=== PATIENT | male | born 1965 | race Caucasian/White ===

== ENCOUNTER 2016-11-17 16:03 | Inpatient (IN) | payer BC ==
[2016-11-17 17:04] VITALS: BMI 22.4
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
[2016-11-17] MEDS ORDERED: MAGNESIUM HYDROX 2400MG/30ML ORAL SUSPENSION 30 ML CUP PO PRN (17:32)
[2016-11-17] MEDS ORDERED: ACETAMINOPHEN 325 MG TABLET (FP) PO PRN (17:32)
[2016-11-17] MEDS ORDERED: MAG HYDROX/AL HYDROX/SIMETH 30 ML UNIT-DOSE CUP PO PRN (17:32)
[2016-11-17] MEDS ORDERED: diphenhydrAMINE HCL 50 MG CAPSULE PO PRN (17:32)
[2016-11-17] MEDS ORDERED: P-EPHED 60MG/TRIPROLIDI 2.5MG TABLET PO PRN (17:32)
[2016-11-17] MEDS ORDERED: MENTHOL/PHENOL 1 EACH UD MM PRN (17:32)
[2016-11-17] MEDS ORDERED: guaiFENesin/D-METHORPHAN HB 10 ML UNIT-DOSE CUPS PO PRN (17:32)
[2016-11-17] MEDS ORDERED: LOPERAMIDE HCL 2 MG CAPSULE PO PRN (17:32)
[2016-11-17] MEDS ORDERED: NICOTINE POLACRILEX 4 MG GUM BC PRN (17:32)
[2016-11-17] MEDS ORDERED: MAGNESIUM CITRATE 300 ML BOTTLE PO PRN (17:32)
[2016-11-17] MEDS ORDERED: ALBUTEROL SO4 2.5/IPRATROPIUM 0.5 INH SOL 3 ML VIAL.NEB. NEB PRN (17:34)
[2016-11-17] MEDS ORDERED: ALBUTEROL SO4 6.7 GM HFA INHALER IH PRN (17:34)
[2016-11-17] MEDS ORDERED: OXYMETAZOLINE 0.05% NASAL SOLUTION 15 ML BOTTLE NS PRN (17:36)
[2016-11-17] MEDS ORDERED: cloNIDine HCL 0.1 MG TABLET PO PRN (17:37)
[2016-11-17] MEDS ORDERED: METHADONE HCL 10 MG TABLET (FOR DETOX USE ONLY) PO ONE ×2 (18:45→23:00)
[2016-11-17] MEDS: amLODIPine BESYLATE 10 MG TABLET (FP) PO SCH (19:57)
[2016-11-17] MEDS: diazePAM 5 MG TABLET PO PRN (19:59)
[2016-11-17] MEDS: DOXYCYCLINE HYCLATE 100 MG TABLET PO SCH (20:06)
[2016-11-17] MEDS: THIAMINE HCL 100 MG TABLET (FP) PO SCH (22:24)
[2016-11-17] MEDS: BUDESONIDE/FORMETEROL FUMARATE 80/4.5 mcg INHALER IH SCH (22:24)
[2016-11-17 22:54] LABS: URINE APPEARANCE CLEAR; URINE BILIRUBIN NEGATIVE (NEGATIVE); URINE BLOOD NEGATIVE (NEGATIVE); URINE COLOR YELLOW; URINE GLUCOSE (UA) NEGATIVE (NEGATIVE); URINE KETONE NEGATIVE (NEGATIVE); URINE LEUK ESTERASE NEGATIVE (NEGATIVE); URINE NITRITE NEGATIVE (NEGATIVE); URINE PROTEIN NEGATIVE (NEGATIVE); URINE UROBILINOGEN 2.0 E.U/dl E.U./dl (0.2-1.0)
[2016-11-18] MEDS: diazePAM 5 MG TABLET PO PRN ×2 (05:46→20:20)
[2016-11-18] MEDS ORDERED: AMOX TR/POT CLAV 875MG/125MG TABLETS (FP) PO SCH (08:00)
[2016-11-18 09:55] LABS: MCH 30.4 pg (25.7-33.7); MCHC 33.2 g/dl (32.0-35.9); MEAN CELL VOLUME 91.5 fl (80-96); MEAN PLT VOLUME 8.1 fl (7.5-11.1); PLATELET COUNT 223 K/MM3 (134-434); RDW 14.1 % (11.9-15.9); WHITE BLOOD COUNT 11.6 K/mm3 (4.0-10.0)
[2016-11-18] MEDS: PRENATAL VITAMINS W/ FOLIC ACID TABLET (FP) PO SCH (09:58)
[2016-11-18] MEDS: amLODIPine BESYLATE 10 MG TABLET (FP) PO SCH (09:58)
[2016-11-18] MEDS: NICOTINE 21 MG/24 HOURS TOPICAL PATCH TD SCH (09:59)
[2016-11-18] MEDS: DOXYCYCLINE HYCLATE 100 MG TABLET PO SCH ×2 (10:00→17:03)
[2016-11-18] MEDS ORDERED: METHADONE HCL 10 MG TABLET (FOR DETOX USE ONLY) PO ONE (10:00)
[2016-11-18] MEDS: BUDESONIDE/FORMETEROL FUMARATE 80/4.5 mcg INHALER IH SCH ×2 (10:00→22:25)
[2016-11-18 10:09] LABS: ALBUMIN 3.9 g/dl (3.4-5.0); ALK PHOS 78 U/L (45-117); ANION GAP 9 (8-16); BILIRUBIN,TOTAL 0.4 mg/dL (0.2-1.0); CALCIUM 9.1 mg/dL (8.5-10.1); CO2 27 mmol/L (21-32); CREATININE 0.8 mg/dL (0.7-1.3); GLUCOSE,RANDOM 127 mg/dL (74-106); SGOT/AST 13 U/L (15-37); SGPT/ALT 22 U/L (12-78); TOT PROT 7.1 g/dl (6.4-8.2)
--- NOTE | 2016-11-18 10:27 | PN ---
BHS COWS - Scale Resting Pulse: 1= [place] 81-100 Sweatin= Chills/Flushing Restless Observation: 3= Extraneous Movement Pupil Size: 2= Moderately Dilated Bone or Joint Aches: 4=Acute Joint/Muscle Pain Runny Nose/ Eye Tearin= Nasal Congestion GI Upset > 30mins: 1= Stomach Cramp Tremor Observation of Outstretched Hands: 1= Tremor [place], Not Seen Yawning Observation: 0= None Anxiety or Irritability: 2=Irritable/Anxious Goose Flesh Skin: 0=Smooth Skin COWS Score: 16 BHS Progress Note (SOAP) Subjective: ANXIETY,SWEATS,IRRITABILITY. Objective: 11/18/16 10:26 Vital Signs Temperature 97.9 F 11/18/16 09:52 Pulse Rate 100 H 11/18/16 09:52 Respiratory Rate 20 11/18/16 09:52 Blood Pressure 127/88 11/18/16 09:52 O2 Sat by Pulse Oximetry (%) Laboratory Last Values WBC 11.6 K/mm3 (4.0-10.0) H 11/18/16 06:30 RBC 5.33 M/mm3 (4.00-5.60) 11/18/16 06:30 Hgb 16.2 GM/dL (11.7-16.9) 11/18/16 06:30 Hct 48.8 % (35.4-49) 11/18/16 06:30 MCV 91.5 fl (80-96) 11/18/16 06:30 MCHC 33.2 g/dl (32.0-35.9) 11/18/16 06:30 RDW 14.1 % (11.9-15.9) 11/18/16 06:30 Plt Count 223 K/MM3 (134-434) 11/18/16 06:30 MPV 8.1 fl (7.5-11.1) 11/18/16 06:30 Sodium 141 mmol/L (136-145) 11/18/16 07:00 Potassium 4.0 mmol/L (3.5-5.1) 11/18/16 07:00 Chloride 105 mmol/L (98-107) 11/18/16 07:00 Carbon Dioxide 27 mmol/L (21-32) 11/18/16 07:00 Anion Gap 9 (8-16) 11/18/16 07:00 BUN 11 mg/dL (7-18) 11/18/16 07:00 Creatinine 0.8 mg/dL (0.7-1.3) 11/18/16 07:00 Creat Clearance w eGFR > 60 (>60) 11/18/16 07:00 Random Glucose 127 mg/dL (74-106) H 11/18/16 07:00 Calcium 9.1 mg/dL (8.5-10.1) 11/18/16 07:00 Total Bilirubin 0.4 mg/dL (0.2-1.0) 11/18/16 07:00 AST 13 U/L (15-37) L 11/18/16 07:00 ALT 22 U/L (12-78) 11/18/16 07:00 Alkaline Phosphatase 78 U/L (45-117) 11/18/16 07:00 Total Protein 7.1 g/dl (6.4-8.2) 11/18/16 07:00 Albumin 3.9 g/dl (3.4-5.0) 11/18/16 07:00 Urine Color Yellow 11/17/16 22:48 Urine Appearance Clear 11/17/16 22:48 Urine pH 7.0 (5.0-8.0) 11/17/16 22:48 Ur Specific [place] 1.024 (1.001-1.035) 11/17/16 22:48 Urine Protein Negative (NEGATIVE) 11/17/16 22:48 Urine Glucose (UA) Negative (NEGATIVE) 11/17/16 22:48 Urine Ketones Negative (NEGATIVE) 11/17/16 22:48 Urine Blood Negative (NEGATIVE) 11/17/16 22:48 Urine Nitrite Negative (NEGATIVE) 11/17/16 22:48 Urine Bilirubin Negative (NEGATIVE) 11/17/16 22:48 Urine Urobilinogen 2.0 e.u/dl E.U./dl (0.2-1.0) 11/17/16 22:48 Ur Leukocyte Esterase Negative (NEGATIVE) 11/17/16 22:48 Assessment: 11/18/16 10:27 WITHDRAWAL SX Plan: CONTINUE DETOX
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
--- NOTE | 2016-11-18 12:52 | EKG ---
Test Reason : Blood Pressure : / mmHG Vent. Rate : 097 BPM Atrial Rate : 097 BPM P-R Int : 114 ms QRS Dur : 112 ms QT Int : 382 ms P-R-T Axes : 071 082 066 degrees QTc Int : 485 ms NORMAL SINUS RHYTHM RIGHT BUNDLE BRANCH BLOCK ABNORMAL ECG NO PREVIOUS ECGS AVAILABLE Confirmed by CHIVO CEJA MD ([id number]) on 11/18/2016 12:51:53 PM Referred By: Confirmed By:CHIVO CEJA MD
--- NOTE | 2016-11-18 12:54 | EKG ---
Test Reason : Blood Pressure : / mmHG Vent. Rate : 085 BPM Atrial Rate : 085 BPM P-R Int : 124 ms QRS Dur : 118 ms QT Int : 412 ms P-R-T Axes : 079 085 072 degrees QTc Int : 490 ms NORMAL SINUS RHYTHM RIGHT BUNDLE BRANCH BLOCK ABNORMAL ECG WHEN COMPARED WITH ECG OF 17-NOV-2016 20:05, NO SIGNIFICANT CHANGE WAS FOUND Confirmed by CHIVO CEJA MD ([id number]) on 11/18/2016 12:53:54 PM Referred By: Confirmed By:CHIVO CEJA MD
[2016-11-18] MEDS: CIPROFLOXACIN 0.3% EYE DROPS 5 ML BOTTLE OD SCH ×2 (15:47→22:28)
[2016-11-18] MEDS: IBUPROFEN 400 MG TABLET (FP) PO PRN (20:19)
[2016-11-18] MEDS: THIAMINE HCL 100 MG TABLET (FP) PO SCH (22:25)
[2016-11-19] MEDS: IBUPROFEN 400 MG TABLET (FP) PO PRN (05:48)
[2016-11-19] MEDS: diazePAM 5 MG TABLET PO PRN ×3 (05:48→17:43)
[2016-11-19] MEDS: CIPROFLOXACIN 0.3% EYE DROPS 5 ML BOTTLE OD SCH ×2 (05:50→14:26)
[2016-11-19] MEDS ORDERED: METHADONE HCL 10 MG TABLET (FOR DETOX USE ONLY) PO ONE (09:12)
[2016-11-19] MEDS ORDERED: cloNIDine HCL 0.1 MG TABLET PO SCH ×2 (09:30→10:00)
[2016-11-19] MEDS ORDERED: METHADONE HCL 5 MG TABLET (FOR DETOX USE ONLY) PO ONE (10:00)
[2016-11-19] MEDS: NICOTINE 21 MG/24 HOURS TOPICAL PATCH TD SCH (10:23)
[2016-11-19] MEDS: DOXYCYCLINE HYCLATE 100 MG TABLET PO SCH ×2 (10:23→17:41)
[2016-11-19] MEDS: PRENATAL VITAMINS W/ FOLIC ACID TABLET (FP) PO SCH (10:23)
[2016-11-19] MEDS: BUDESONIDE/FORMETEROL FUMARATE 80/4.5 mcg INHALER IH SCH (10:24)
--- NOTE | 2016-11-19 10:37 | PN ---
BHS COWS - Scale Resting Pulse: 1= [place] 81-100 Sweatin= Chills/Flushing Restless Observation: 0= Sits Still Pupil Size: 0= Normal to Room Light Bone or Joint Aches: 4=Acute Joint/Muscle Pain Runny Nose/ Eye Tearin= Runny Nose/Eyes GI Upset > 30mins: 1= Stomach Cramp Tremor Observation of Outstretched Hands: 2= Slight Tremor Visible Yawning Observation: 1= 1-2x During Session Anxiety or Irritability: 2=Irritable/Anxious Goose Flesh Skin: 0=Smooth Skin COWS Score: 14 BHS Progress Note (SOAP) Subjective: ANXIETY,SWEATS. RIGHT EYE MUCH BETTER TODAY. NORMAL EYELID OPENING, SWELLING AND EYE DRAINAGE RESOLVING. VISION UNIMPAIRED. NO C/O PAIN. Objective: 11/19/16 10:36 Vital Signs Temperature 96.2 F L 11/19/16 09:45 Pulse Rate 92 H 11/19/16 09:45 Respiratory Rate 18 11/19/16 09:45 Blood Pressure 140/95 11/19/16 09:45 O2 Sat by Pulse Oximetry (%) Laboratory Last Values WBC 11.6 K/mm3 (4.0-10.0) H 11/18/16 06:30 RBC 5.33 M/mm3 (4.00-5.60) 11/18/16 06:30 Hgb 16.2 GM/dL (11.7-16.9) 11/18/16 06:30 Hct 48.8 % (35.4-49) 11/18/16 06:30 MCV 91.5 fl (80-96) 11/18/16 06:30 MCHC 33.2 g/dl (32.0-35.9) 11/18/16 06:30 RDW 14.1 % (11.9-15.9) 11/18/16 06:30 Plt Count 223 K/MM3 (134-434) 11/18/16 06:30 MPV 8.1 fl (7.5-11.1) 11/18/16 06:30 Sodium 141 mmol/L (136-145) 11/18/16 07:00 Potassium 4.0 mmol/L (3.5-5.1) 11/18/16 07:00 Chloride 105 mmol/L (98-107) 11/18/16 07:00 Carbon Dioxide 27 mmol/L (21-32) 11/18/16 07:00 Anion Gap 9 (8-16) 11/18/16 07:00 BUN 11 mg/dL (7-18) 11/18/16 07:00 Creatinine 0.8 mg/dL (0.7-1.3) 11/18/16 07:00 Creat Clearance w eGFR > 60 (>60) 11/18/16 07:00 Random Glucose 127 mg/dL (74-106) H 11/18/16 07:00 Calcium 9.1 mg/dL (8.5-10.1) 11/18/16 07:00 Total Bilirubin 0.4 mg/dL (0.2-1.0) 11/18/16 07:00 AST 13 U/L (15-37) L 11/18/16 07:00 ALT 22 U/L (12-78) 11/18/16 07:00 Alkaline Phosphatase 78 U/L (45-117) 11/18/16 07:00 Total Protein 7.1 g/dl (6.4-8.2) 11/18/16 07:00 Albumin 3.9 g/dl (3.4-5.0) 11/18/16 07:00 Urine Color Yellow 11/17/16 22:48 Urine Appearance Clear 11/17/16 22:48 Urine pH 7.0 (5.0-8.0) 11/17/16 22:48 Ur Specific [place] 1.024 (1.001-1.035) 11/17/16 22:48 Urine Protein Negative (NEGATIVE) 11/17/16 22:48 Urine Glucose (UA) Negative (NEGATIVE) 11/17/16 22:48 Urine Ketones Negative (NEGATIVE) 11/17/16 22:48 Urine Blood Negative (NEGATIVE) 11/17/16 22:48 Urine Nitrite Negative (NEGATIVE) 11/17/16 22:48 Urine Bilirubin Negative (NEGATIVE) 11/17/16 22:48 Urine Urobilinogen 2.0 e.u/dl E.U./dl (0.2-1.0) 11/17/16 22:48 Ur Leukocyte Esterase Negative (NEGATIVE) 11/17/16 22:48 RPR Titer Nonreactive (NONREACTIVE) 11/18/16 07:00 Hepatitis C Antibody <0.1 s/co ratio (0.0-0.9) 11/17/16 07:00 EYE: SPONTANEOUS EYELID OPENING WITH SWELLING RESOLVING; NO DRAINAGE NOTED SCLERA REDNESS CLEARING. Assessment: 11/19/16 10:37 WITHDRAWAL SX TRUAMA RIGHT EYE--FRACTURE INFERIOR LATERAL ORBITAL AND NASAL BONE PER CTSCAN RESULT([facility]) CONJUCTIVITIS Plan: CONTINUE DETOX METHADONE PROTOCOL ADJUSTED TODAY. METHADONE 10 MG TODAY AND METHADONE 5 MG ON 11/20/16 DIRECTED.
[2016-11-19 17:47] VITALS: BP 118/76; PULSE 89; TEMP 96.5
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
[2016-11-20] MEDS ORDERED: METHADONE HCL 5 MG TABLET (FOR DETOX USE ONLY) PO ONE ×2 (06:00→10:00)
[2016-11-21] MEDS ORDERED: METHADONE HCL 10 MG TABLET (FOR DETOX USE ONLY) PO ONE (10:00)
[2016-11-22] MEDS ORDERED: METHADONE HCL 5 MG TABLET (FOR DETOX USE ONLY) PO ONE (06:00)
== END 2016-11-19 19:32 | disposition left against medical advice (07) | DRG 770 ==
LOC: YASAS 16:03 → Y3N 18:25
PROVIDERS: ADMIT Internal Medicine; ATTEND Internal Medicine
PROC: HZ2ZZZZ Detoxification Services for Substance Abuse Treatment (ICD-10-PCS; principal; 2016-11-19)
DX: F11.20 Opioid dependence, uncomplicated (principal); F12.20 Cannabis dependence, uncomplicated; I10 Essential (primary) hypertension; S02.80XD Fracture of other specified skull and facial bones, unspecified side, subsequent encounter for fracture with routine healing; Y04.2XXA Assault by strike against or bumped into by another person, initial encounter; Y93.89 Activity, other specified; Y92.89 Other specified places as the place of occurrence of the external cause; I25.2 Old myocardial infarction; R63.4 Abnormal weight loss; Z68.22 Body mass index [BMI] 22.0-22.9, adult
CPT/HCPCS: 36415; 80053; 81003; 85027; 86593; 93005; 93010

== ENCOUNTER 2016-11-18 10:36 | Emergency (ER) | payer BC ==
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
[2016-11-18] MEDS ORDERED: IBUPROFEN 400 MG TABLET (FP) PO ONE ×2 (11:05→11:18)
[2016-11-18 11:07] VITALS: BP 118/98; PULSE 98; TEMP 98.8; BMI 20.5
== END 2016-11-18 11:40 | disposition other institution (70) ==
LOC: JER 10:36
DX: H10.9 Unspecified conjunctivitis (principal); I10 Essential (primary) hypertension; I25.2 Old myocardial infarction; F11.20 Opioid dependence, uncomplicated; F17.210 Nicotine dependence, cigarettes, uncomplicated; J45.909 Unspecified asthma, uncomplicated; J44.9 Chronic obstructive pulmonary disease, unspecified; Y04.2XXA Assault by strike against or bumped into by another person, initial encounter; Y93.89 Activity, other specified; Y92.9 Unspecified place or not applicable
CPT/HCPCS: 99281-25